=== PATIENT | male | born 1990 | race American Indian/Alaskan Native ===

== ENCOUNTER 2016-08-02 08:23 | Day surgery (SDC) | payer OTHER ==
[~2016-08-02 08:23] MED LIST: XYLOCAINE MPF 2% ONE
[2016-08-02] MEDS ORDERED: WATER FOR IRRIG STERILE IR ONE (08:48)
--- NOTE | 2016-08-02 09:28 | Anesthesia Consultation ---
Anesthesia Consult and Med Hx Date of service: 08/02/16 - Airway Anesthetic Teeth Evaluation: Good, Caps ROM Head & Neck: Adequate Mental/Hyoid Distance: Adequate Mallampati Class: Class II Intubation Access Assessment: Probably Good - Pulmonary Exam CTA: Yes - Cardiac Exam Cardiac Exam: RRR - Pre-Operative Health Status ASA Pre-Surgery Classification: ASA1 Proposed Anesthetic Plan: MAC - Pre-Anesthesia Comment Pre-Anesthesia Comments: upper central incisor is capped - Additional Comments Anesthesia Medical History Comments: rectal bleeding. otherwise healthy
--- NOTE | 2016-08-02 09:29 | Anesthesia Day of Surgery ---
Anesthesia Day of Surgery - Day of Surgery Patient Examined: Yes Patient H&P Reviewed: Yes Patient is NPO: Yes
[2016-08-02] MEDS ORDERED: DIPRIVAN 10 MG/ML IV ONE ×3 (09:43)
[2016-08-02] MEDS ORDERED: NACL 0.9% 1000 ML 1,000 ML IV SCH (10:00)
--- NOTE | 2016-08-02 11:07 | Operative Report ---
Operative Report Operative Report: Date of procedure: 08/02/2016 Procedure: Colonoscopy with Hot Biopsy polypectomy Attending physician: Remington Goldstein MD Electronics Recycler: Remington Goldstein MD Indication: Patient is a 26-year-old male who presented with complaints of recurrent rectal bleeding/blood in stool. A colonoscopy is now done to assess patient so that treatment may be directed based on the findings. Consent: Informed consent was obtained after advising the patient and family regarding nature of this procedure, its indications, potential benefits as well as possible complications including but not limited to bleeding perforation and adverse reaction to medication, infection as well as other cardiopulmonary complications. An informed written and verbal consent was then obtained after due opportunity was provided for questions and answers. Monitoring: Patient was monitored continuously with pulse oximetry and electrocardiographic recordings as well as blood pressure recordings. Vital signs remained stable throughout this procedure with no untoward events. Preoperative assessment: Patient was assessed immediately prior to this procedure for capacity to tolerate monitored anesthesia care and moderate sedation as well as general anesthesia. Patient's ASA classification is 1, Mallampati class is 2, Hyomental distance is 3. Instrument: maniaTV videocolonoscope Medications: Propofol, given intravenously in divided doses. For details please refer to anesthesia records. Description of procedure: Patient was placed in the left lateral decubitus position after achieving sedation, a digital rectal examination was performed following which the colonoscope was introduced into the anal verge and advanced to the cecum which was identified by the cecal valve, the appendiceal orifice, as well as by the cecal strap and direct transillumination. The colonoscope was subsequently withdrawn with careful inspection of all mucosal surfaces. Patient tolerated this procedure well and was subsequently taken to the recovery room. The following findings were noted. Findings: The cecum was normal. The ascending colon was normal. The transverse colon was normal. The descending colon was normal. In the sigmoid colon, patient had a diminutive 6 mm polyp that was sessile. It was removed by hot biopsy polypectomy and retrieved. The rest of the colon and the rectum were normal. On the retroflex view at the anal verge, patient had internal hemorrhoids. Impression: Diminutive sigmoid colon polyp status post hot biopsy polypectomy. Internal hemorrhoids. Plan: Follow pathology report. High-fiber diet. As needed stool softeners. Also as needed hemorrhoidal suppositories when symptomatic. It is likely, the patient's rectal bleeding is hemorrhoidal in origin.
--- NOTE | 2016-08-02 11:29 | Discharge Summary ---
Short Stay Discharge Plan Activity: advance as tolerated Weight Bearing Status: Weight Bear as Tolerated Diet: regular
[2016-08-02 11:42] VITALS: BP 147/90
--- NOTE | 2016-08-02 14:01 | Post Anesthesia Evaluation ---
- Post Anesthesia Evaluation Patient Participated: Yes Airway Patent: Yes Stable Respiratory Function: Yes Nausea/Vomiting: No Temp > 96.8F: Yes Pain Manageable: Yes Adequeate Hydration: Yes Anesthesia Complications: No Block Receding Appropriately: Not Applicable Patient on Ventilator: No
== END 2016-08-02 08:24 | disposition home or self-care (01) ==
LOC: GIO 08:23
PROVIDERS: ATTEND Internal Medicine Gastroenterology
DX: K63.5 Polyp of colon (principal); K64.8 Other hemorrhoids; F32.9 Major depressive disorder, single episode, unspecified; F41.9 Anxiety disorder, unspecified; Z96.641 Presence of right artificial hip joint
CPT/HCPCS: 45384; 88305; J2704; J7030